=== PATIENT | female | born 2000 ===

== ENCOUNTER 2022-06-30 08:00 | Outpatient (CLI) | payer OTHER | END 2022-06-30 09:06 | disposition home or self-care (01) | LOC: PRENATAL 08:00 | PROVIDERS: ATTEND Obstetrics & Gynecology Maternal & Fetal Medicine | DX: O35.9XX0 Maternal care for (suspected) fetal abnormality and damage, unspecified, not applicable or unspecified (principal); O35.3XX0 Maternal care for (suspected) damage to fetus from viral disease in mother, not applicable or unspecified; Z3A.20 20 weeks gestation of pregnancy ==

== ENCOUNTER 2022-07-28 11:43 | Inpatient (IN) | payer OTHER ==
[~2022-07-28] VITALS: Ht 121.9 cm; Wt 56.2 kg
[2022-07-28] MEDS ORDERED: PRENATAL TABLE1 EAC6 PO (12:11)
== END 2022-08-09 21:07 | disposition home or self-care (01) | DRG 831 ==
LOC: OB/GYN 11:43 → LDR 11:43 → OB/GYN 07-29 10:54
PROVIDERS: ADMIT Obstetrics & Gynecology; ATTEND Obstetrics & Gynecology
PROC: 4A1HXCZ Monitoring of Products of Conception, Cardiac Rate, External Approach (ICD-10-PCS; principal; 2022-07-28)
PROC: BY4CZZZ Ultrasonography of Second Trimester, Single Fetus (ICD-10-PCS; 2022-07-28)
PROC: BU4CZZZ Ultrasonography of Uterus and Ovaries (ICD-10-PCS; 2022-07-28)
PROC: BY4CZZZ Ultrasonography of Second Trimester, Single Fetus (ICD-10-PCS; 2022-08-08)
PROC: BU4CZZZ Ultrasonography of Uterus and Ovaries (ICD-10-PCS; 2022-08-08)
DX: O46.8X2 Other antepartum hemorrhage, second trimester (principal); O60.02 Preterm labor without delivery, second trimester; O26.872 Cervical shortening, second trimester; O26.842 Uterine size-date discrepancy, second trimester; O26.852 Spotting complicating pregnancy, second trimester; Z3A.24 24 weeks gestation of pregnancy; Z20.822 Contact with and (suspected) exposure to COVID-19

== ENCOUNTER 2022-08-10 10:52 | Inpatient (IN) | payer OTHER ==
[~2022-08-10] VITALS: Ht 149.9 cm; Wt 56.2 kg
[~2022-08-10 10:52] MED LIST: PRENATAL TABLE1 EAC6 PO
== END 2022-08-14 13:07 | disposition home or self-care (01) | DRG 805 ==
LOC: LDR 10:52 → OB/GYN 14:03
PROVIDERS: ADMIT Obstetrics & Gynecology; ATTEND Obstetrics & Gynecology
PROC: 10E0XZZ Delivery of Products of Conception, External Approach (ICD-10-PCS; principal; 2022-08-10)
PROC: 4A1HXCZ Monitoring of Products of Conception, Cardiac Rate, External Approach (ICD-10-PCS; 2022-08-10)
DX: O45.8X2 Other premature separation of placenta, second trimester (principal); O60.12X0 Preterm labor second trimester with preterm delivery second trimester, not applicable or unspecified; Z37.0 Single live birth; O26.872 Cervical shortening, second trimester; Z3A.26 26 weeks gestation of pregnancy; Z20.822 Contact with and (suspected) exposure to COVID-19